=== PATIENT | male | born 1975 | race Caucasian/White ===

== ENCOUNTER 2016-12-29 14:20 | Emergency (ER) | payer BC, OTHER ==
[~2016-12-29] VITALS: Ht 188 cm; Wt 82.0 kg
[2016-12-29 14:24] VITALS: BP 122/68
[2016-12-29 14:48] LABS: HEMATOCRIT 40.2 % (39.2-51.8); HEMOGLOBIN 13.4 g/dL (13.7-18.0); WHITE BLOOD COUNT 10.8 x10^3/uL (3.4-10)
[2016-12-29] MEDS ORDERED: KETOROLAC 30 MG/1 ML ONE (15:17)
[2016-12-29] MEDS ORDERED: KETOROLAC 30 MG/1 ML IM ONE (15:30)
== END 2016-12-29 15:57 | disposition home or self-care (01) ==
LOC: ED 15:51
DX: S89.91XA Unspecified injury of right lower leg, initial encounter (principal); M25.461 Effusion, right knee; X58.XXXA Exposure to other specified factors, initial encounter; Y93.89 Activity, other specified; Y92.89 Other specified places as the place of occurrence of the external cause; Y99.8 Other external cause status
CPT/HCPCS: 36415; 73564; 84550; 85025; 96372; 99285; J1885

== ENCOUNTER → 2017-02-18 | Outpatient (CLI) | payer OTHER | END | disposition home or self-care (01) | LOC: CFH 10:32 | PROVIDERS: ATTEND Internal Medicine | DX: M47.892 Other spondylosis, cervical region (principal); M25.78 Osteophyte, vertebrae; M47.896 Other spondylosis, lumbar region; M53.3 Sacrococcygeal disorders, not elsewhere classified; M54.6 Pain in thoracic spine | CPT/HCPCS: 72040; 72072; 72100; 72202 ==